=== PATIENT | male | born 1980 | race Caucasian/White ===

== ENCOUNTER 2020-07-13 01:51 | Outpatient (CLI) | payer OTHER, SELFPAY ==
[2020-07-13 13:10] LABS: Anion Gap 6.1 mmol/L (3-11); BUN 17 mg/dL (7-18); CO2 26.9 mmol/L (21.0-32.0); CREATININE 0.94 mg/dL (0.70-1.30); Calcium 8.9 mg/dL (8.5-10.1); Chloride 98 mmol/L (98-107); Cholesterol 290 mg/dL (<200); Glucose 177 mg/dL (74-106); HDL Cholesterol 30 mg/dL (40-60); Potassium 4.2 mmol/L (3.5-5.1); Sodium 131 mmol/L (136-145); Triglyceride 751 mg/dL (<150)
[2020-07-13 13:27] LABS: LDL CHOLESTEROL 115 mg/dL (<100)
[2020-07-13 13:49] LABS: Hemoglobin A1C 7.1 % (<5.7)
[2020-07-16 15:11] LABS: HIV 1 RNA Qualitative Undetected copies/mL (Undetected)
== END 2020-07-13 02:11 ==
PROVIDERS: PCP Internal Medicine Infectious Disease; Visit Provider Internal Medicine Infectious Disease
DX: B20 Human immunodeficiency virus [HIV] disease (principal); E78.5 Hyperlipidemia, unspecified; E11.9 Type 2 diabetes mellitus without complications
CPT/HCPCS: 36415; 80048; 80061; 83721; 87536; 83036